=== PATIENT | male | born 1985 | race Caucasian/White ===

== ENCOUNTER → 2019-09-18 | Outpatient (CLI) | payer BC ==
--- NOTE | 2019-09-18 09:55 | Diagnostic Imaging Report ---
CT of the abdomen and pelvis, without contrast. History: Renal calculus. Comparison: None available. Technique: Multidetector CT scanning of the abdomen and pelvis was performed from the level of the lung bases to the inferior pubic rami without the use of contrast material. Coronal and sagittal multiplanar reformations were obtained. RADIATION DOSE: Total DLP: 950.18 mGy*cm Dose modulation, iterative reconstruction, and/or weight based adjustment of the mA/kV was utilized to reduce the radiation dose to as low as reasonably achievable. FINDINGS: The visualized lungs are unremarkable. The imaged portion of the heart demonstrates no significant abnormalities. The liver is normal in size and attenuation on this noncontrast enhanced examination. The gallbladder is unremarkable. There is no biliary ductal dilatation. The spleen appears mildly prominent but otherwise demonstrates an unremarkable noncontrast appearance. The stomach, pancreas, and bilateral adrenal glands demonstrate an unremarkable noncontrast appearance. The kidneys are normal in size and location. There is no evidence for nephrolithiasis or hydronephrosis. A small hypodensity is identified within the inferior pole the right kidney (best appreciated on sagittal image 49) which is not definitively characterized on this noncontrast enhanced examination but favored to represent a cyst. No ureteral dilatation or stone is identified. Small phleboliths are noted within the pelvis. The urinary bladder and prostate demonstrate no significant abnormalities. The abdominal aorta is normal course and caliber. The IVC is normal in caliber. Please note evaluation the bowel is limited without the use of enteric contrast material. The visualized loops of small and large bowel demonstrate no evidence of obstruction or inflammation. The appendix is visualized and appears unremarkable. There is no ascites or intraperitoneal free air. No abnormally enlarged lymph nodes are identified within the abdomen or pelvis. A small fat-containing left inguinal hernia is noted. The osseous structures demonstrate no evidence for acute fracture or destructive process. The extraperitoneal soft tissues are unremarkable. IMPRESSION: No acute abdominopelvic process identified. Specifically, no evidence for nephrolithiasis or obstructive uropathy. Signed by: Dr. Wilfred Forman MD on 09/18/2019 9:51 AM
== END ==
LOC: CT 07:56
PROVIDERS: ATTEND Urology
DX: Z87.442 Personal history of urinary calculi (principal); K40.90 Unilateral inguinal hernia, without obstruction or gangrene, not specified as recurrent
CPT/HCPCS: 74176

== ENCOUNTER → 2019-09-26 | Outpatient (CLI) | payer BC ==
--- NOTE | 2019-09-26 11:55 | Diagnostic Imaging Report ---
EXAM: Renal Ultrasound INDICATION: Renal cyst COMPARISON: CT abdomen and pelvis of 09/18/2019 TECHNIQUE: Transverse and longitudinal images of the kidneys and bladder were obtained. FINDINGS: Right Kidney: Length: 12.2 cm Appearance: Normal echogenicity. Collecting system: No hydronephrosis Stones: None Cyst/Mass: Lower pole 1.6 cm anechoic simple cyst. Left Kidney: Length: 13.2 cm Appearance: Normal echogenicity. Collecting system: No hydronephrosis Stones: None Cyst/Mass: None Bladder: No mass or calculi. Bilateral ureteral jets visualized. Prevoid volume estimate of 118 cc. The prostate measures 2.6 x 2.1 x 2.6 cm with volume estimate of 7 cc. IMPRESSION: No hydronephrosis or renal calculi. Right renal simple cyst. Signed by: Keith Peters MD on 09/26/2019 11:52 AM
== END ==
LOC: US 11:01
PROVIDERS: ATTEND Urology
DX: N28.1 Cyst of kidney, acquired (principal)
CPT/HCPCS: 76770